=== PATIENT | male | born 1955 | race Caucasian/White ===

== ENCOUNTER 2019-04-19 14:23 | Inpatient (IN) | payer MEDICARE ==
[~2019-04-19] VITALS: Ht 152.4 cm; Wt 78.5 kg
[~2019-04-19 14:23] MED LIST: ALLOPURINOL 30300 M1 PO; ASPIRIN325; ASPIRIN81 M2 PO; AZOR 5-40 MG T1 EACH PO; BYSTOLIC10 MG PO; CRESTOR10 MG PO; FISH OIL 1,0001 EAC5 PO; HYDROCODONE-AP1 EAC6 PO; LISINOPRIL10 MG; LOPID600 MG PO; MEDROLDOSEPACK PO; METFORMIN HCL500 MG PO; NIASPAN ER 101000 M1 PO; ROBAXIN 750 MG750 M1 PO
[2019-04-19 14:24] VITALS: BP 169/72
[2019-04-19] MEDS ORDERED: LISINOPRIL20 MG PO (14:29)
[2019-04-19] MEDS ORDERED: FLOMAX0.4 MG PO (14:30)
[2019-04-19] MEDS ORDERED: AMLODIPINE BESY10 MG PO (14:31)
[2019-04-19] MEDS ORDERED: TIZANIDINE HCL4 M1 PO (14:31)
[2019-04-19 14:51] LABS: ABSOLUTE BASOPHILS 0.2 thou/uL (0.0-0.2); ABSOLUTE LYMPHOCYTES 1.8 thou/uL (0.8-5.3); ABSOLUTE MONOCYTES 1.1 thou/uL (0.0-1.2); ABSOLUTE NEUTROPHILS 11.3 thou/uL (1.6-8.1); BASOPHILS 1.4 %; HEMATOCRIT 38.3 % (42.0-52.0); HEMOGLOBIN 13.2 gm/dL (14.0-18.0); LYMPHOCYTES 12.9 %; MCH 33.5 pg (26.0-34.0); MCHC 34.5 g/dL (28.0-37.0); MONOCYTES 7.4 %; MPV 7.2 fl. (7.2-11.1); NUCLEATED RBCS 0 /100WBC; PLATELET COUNT* 364 thou/uL (150-400); POLYS 78.3 %; RBC 3.95 mil/uL (4.50-6.00); RDW-CV 14.3 % (10.5-14.5); WBC 14.4 thou/uL (4.0-11.0)
[2019-04-19 14:59] LABS: INFLUENZA A ANTIGEN Negative (Negative); INFLUENZA B ANTIGEN Negative (Negative)
[2019-04-19 15:26] LABS: CALCIUM 8.9 mg/dL (8.5-10.1); POTASSIUM 3.8 mmol/L (3.5-5.1)
[2019-04-19 15:30] LABS: APTT 26.5 Seconds (25.0-31.3); PROTIME 10.7 Seconds (9.20-11.50)
[2019-04-19 15:50] LABS: ALBUMIN 3.5 g/dL (3.4-5.0); CK-MB MASS 1.2 ng/mL (<0.5-3.6); MAGNESIUM 1.8 mg/dL (1.8-2.4); TOTAL BILIRUBIN 0.2 mg/dL (<0.1-1.0)
[2019-04-19 17:06] VITALS: BP 146/59
[2019-04-19 17:30] VITALS: BP 116/85
--- NOTE | 2019-04-19 18:19 | NUR ---
ASSUMED PT CARE REPORT RECEIVED FROM ER NURSE. PT ARRIVED ON FLOOR ACCOMPANIED BY ER NURSE ON BED. PT IS AOX4, ON RA. O2 2 LNC APPLIED ORDERED. VSS. SEE CHART. TRACING SR ON BOAT OFFICER. PT IS A SMOKER AND NICOTINE PATCH APPLIED. R AC LINE PATENT. PT IS UP AD KEVIN. ADMISSION HX AND ASSESSMENT DONE. WILL CONTINUE TO MONITOR PT
--- NOTE | 2019-04-19 18:56 | NUR ---
pt troponin 1.71 lab communicated to this nurse per high density press laborer at 1850. dr contacted by [facility] system at 1931. awaiting for call back .pt denies chest pain.
--- NOTE | 2019-04-19 19:06 | NUR ---
CARDIOLOGY CONSULTED OVER ELEVATED TROPONIN. MESSAGE LEFT THROUGH ANSWERING SERVICE.
--- NOTE | 2019-04-19 19:33 | NUR ---
CARDIO CALLED BACK. WEIGHT BASED HEPARIN BOLUS AND ASPIRIN ORDERED. ORDERED PLACED ON MEDITECH AND CHART. HEPARIN ORDER FAXED TO PHARMACY.
--- NOTE | 2019-04-19 19:51 | NUR ---
asa given to patient as ordered
[2019-04-19 20:00] VITALS: BP 125/60
[2019-04-19 20:50] VITALS: BP 125/60
[2019-04-20] VITALS: BP 108/57
--- NOTE | 2019-04-20 01:48 | NUR ---
PT ALERT ORIENTED. UP AD KEVIN IN ROOM. DENIES CP OR DISCOMFORT. L SHOULDER CHRONIC PAIN HYDROCODONE GIVEN. ON RA, HEPARIN BOLUS AND QTT INFUSING. TROPONIN LEVEL INCREASED TO 2.91 DR FOSS NOTIFIED. NO NEW ORDERS. NPO AT SC FOR CARDIOLOGY CONSULT. TELEMETRY SHOWS SR. SB 40S WHILE SLEEPING. WCTM
[2019-04-20 04:00] VITALS: BP 121/61
--- NOTE | 2019-04-20 06:09 | NUR ---
PT NPO AT MIDNIGHT FOR CARDIOLOGY CONSULT.
[2019-04-20 07:55] VITALS: BP 156/63
[2019-04-20 12:00] VITALS: BP 132/54
[2019-04-20 12:13] LABS: CHOLESTEROL 152 mg/dL (<200); HDL CHOLESTEROL 27 mg/dL (>40); LDL CHOLESTEROL 100 mg/dL (<100); TC:HDL 5.6 Ratio (Not establshd); TRIGLYCERIDE 129 mg/dL (<150); VLDL 26 mg/dL (<40)
[2019-04-20 12:14] LABS: SERUM ASSESSMENT Clear
[2019-04-20 16:00] VITALS: BP 123/45
--- NOTE | 2019-04-20 17:14 | NUR ---
PATIENT RESTING IN BED. PATIENT IS UP AD KEVIN IN ROOM. PATIENT HAS DENIED ANY CHEST PAIN TODAY. PATIENT HAD CT THIS MORNING WITHOUT INCIDNENT. PATIENT SCHEDULED FOR CARDIAC CATH TOMORROW. PATIENT HAS GOOD APPETITE, NPO AFTER MIDNIGHT. PATIENT DENIES ANY NEEDS AT THIS TIME. CALL LIGHT WITHIN REACH.
[2019-04-20 20:00] VITALS: BP 170/72
[2019-04-21] VITALS (16 sets, daily range): BP systolic 102–173; BP diastolic 52–75
[2019-04-21] MEDS ORDERED: NORCO 7.5-3251 EACH PO (07:50)
--- NOTE | 2019-04-21 08:36 | EKG ---
[place] [address] ELECTROCARDIOGRAM REPORT Name: CONSTANTINO KAY Room: [facility] ADM IN M.R.#: [id number] Admission: 04/19/19 Attend Phys: Arina Martins Discharge: Date of : 53 Report #: [id number] THIS REPORT FOR: //name// [facility] ED Test Date: 2019-04-19 Test Time: 14:28:29 Pat Name: CONSTANTINO KAY Department: Room: [facility] Gender: M Radiology Interventional Physician: : 1955 Requested By: Jean Michelle Order Number: [id number] MD: Jf Murrell Measurements Intervals [place] Rate: 85 P: 73 MI: 170 QRS: 32 QRSD: 97 T: 85 QT: 388 QTc: 462 Interpretive Statements Sinus rhythm Ventricular premature complex Minimal ST depression, lateral leads Compared to ECG 10/19/2008 13:26:44 Ventricular premature complex(es) now present ST (T wave) deviation now present Electronically Signed On 04-21-2019 8:35:42 HUMAN RESOURCE INTERN by Jf Murrell [email or web address] <ELECTRONICALLY SIGNED> By: Jf Murrell MD, FACC 04/21/19 0835 1428 1428 Jf Murrell MD, [facility] /EPI
--- NOTE | 2019-04-21 10:12 | NUR ---
ASSUMED PT CARE REPORT RECEIVED FROM NURSE PT IS AOX4 ON RA. O2 SATURATION IS 94%. TRACING SINUS JOCELYN ON SLIDE MAKER. NPO STATUS FOR CARDIAC CATH TODAY. CONSENT SIGNED AT BEDSIDE. PT COMPLAINS OF PAIN. NORCO GIVEN. VSS. IV 1/2 NS AT 75 STARTED ORDERED. HEPARIN DIRP INFUSING AT THIS MOMENT. ACCUCHECK. BP MEDICINE AND ASA GIVEN. CALL LIGHT AT REACH. WILL CONTINUE TO MONITOR PT
--- NOTE | 2019-04-21 10:30 | NUR ---
MET WITH PT AND TO DISCUSS HOME SITUATION/DC PLANNING. PT LIVES WITH , HE IS NORMALLY INDEPENDENT AND ACTIVE. USES NO EQUIPMENT OR HOME CARE. FOLL[facility] [place]. PLANS TO RETURN HOME AT DC.
--- NOTE | 2019-04-21 14:25 | NUR ---
PT LEFT FLOOR AT 1425 ACCOMPANIED BY DISASTER DIRECTOR NURSE AND RELATIVES ON BED.
--- NOTE | 2019-04-21 14:28 | NUR ---
HEPARIN DRIP RATE WAS CHANGED AT 1235 PER APTT RESULT PROTOCOL. SEE EMAR AND CHART
--- NOTE | 2019-04-21 18:28 | NUR ---
PT BACK FROM CARDIAC CATH AT 1615, VS BEING MONITORED Q 15 MINUTES. TRACING SR ON YARD COUPLER. EKG DONE AT BEDSIDE. COMPLAINS OF COUGH. MUCINEX GIVEN. COGUGH SUBSIDED DURING DINER TIME. PT INSTRUCTED TO STAY ON BEDREST UNTIL 9PM. ACCUCHECK. FLOMAX AND NICOTINE PATCH GIVEN. L GROIN SITE MONITORING Q 15, 30 MINUTES. L GROIN DRESSING OOZING SCANT RED BLOOD. WILL CONTINUE TO MONITOR FORR BLEEDING. URINAL PROVIDED. NO FURTHER COMPLAINT. WILL CONTINUE TO MONITOR PT. CALL LIGHT AT REACH
[2019-04-22] VITALS: BP 109/42
[2019-04-22 04:00] VITALS: BP 122/43
[2019-04-22 04:56] LABS: ALBUMIN 2.9 g/dL (3.4-5.0); CALCIUM 8.5 mg/dL (8.5-10.1); CREATININE 0.9 mg/dL (0.6-1.3); POTASSIUM 4.3 mmol/L (3.5-5.1); TOTAL BILIRUBIN 0.2 mg/dL (<0.1-1.0); TOTAL PROTEIN 6.6 g/dL (6.4-8.2)
[2019-04-22 05:47] LABS: TROPONIN-I LEVEL 0.84 ng/mL (<0.06)
[2019-04-22 06:19] LABS: HEMATOCRIT 25.7 % (42.0-52.0); HEMOGLOBIN 11.6 gm/dL (14.0-18.0); MCH 52.7 pg (26.0-34.0); MCHC 45.3 g/dL (28.0-37.0); MPV 6.8 fl. (7.2-11.1); RBC 2.21 mil/uL (4.50-6.00); RDW-CV 14.6 % (10.5-14.5); WBC 8.9 thou/uL (4.0-11.0)
[2019-04-22 06:20] LABS: MCV 116.4 fL (80.0-100.0)
[2019-04-22 08:00] VITALS: BP 144/68
[2019-04-22 11:11] VITALS: BP 144/68
[2019-04-22 11:49] VITALS: BP 140/65
--- NOTE | 2019-04-22 12:41 | CARD ---
[facility] [address] [place] [address] CARDIAC CATH REPORT Name: CONSTANTINO KAY Room: [place] [address] ADM IN M.R.#: [id number] Admission: 04/19/19 Attend Phys: Arina Martins Discharge: Date of : 53 Report #: [id number] THIS REPORT FOR: //name// APPROVED REPORT Study performed: 04/21/2019 14:05:[address] Gallego Procedures Performed Left heart catheterization left ventriculography selective coronary arteriography and percutaneous coronary intervention to mid LAD Indication Non-STEMI Risk Factors Hypercholesterolemia, Hypertension Admission/Lab Medications/Medications given during procedure Angiomax bolus and infusion Procedure Narrative The patient was brought electively to the Cardiac Catheterization Laboratory and was prepped and draped in a sterile manner. The left femoral was infiltrated with 2% Lidocaine subcutaneous anesthesia. A 6 Welsh sheath was inserted into the left femoral artery. Coronary angiography was performed using coronary diagnostic catheters. The right coronary system was accessed and visualized with a Diagnostic catheter. The left coronary system was accessed and visualized with a Diagnostic catheter. The left ventricle was accessed and visualized with a Diagnostic catheter. Left ventricular/Aortic Valve gradient assessed via catheter pullback. Left ventriculogram was performed in DIAZ projection. Pre-demployment femoral angiogram was performed . Closure device was deployed with a 6 Fr Angioseal. There was no hematoma. Diagnostic Cath Left Main 0% narrowing LAD 30% proximal narrowing with 90% heavily calcified tortuous mid LAD stenosis Circumflex Tortuosity with 30% mid vessel narrowing Right Coronary 100% ostial occlusion with [id number] collaterals [address] [address] CARDIAC CATH REPORT Name: CONSTANTINO KAY Room: [address] IN ..#: [id number] Admission: 04/19/19 Attend Phys: Arina Martins Discharge: Date of : 53 Report #: [id number] filling the distal right coronary artery Left Ventriculography The left ventricle is normal in size with normal contractility. The left ventricular ejection fraction is estimated to be 60%. Left ventricular wall motion abnormalities are not present. There is no mitral insufficiency. Hemodynamics The aortic pressure is 160/70 mmHg with a mean of 90 mmHg. The left ventricular pressure is 160/8 end-diastolic mmHg with a mean of mmHg. The left ventricular end diastolic pressure is 8 mmHg. There was no gradient across the aortic valve upon pullback. PCI Technique Lesion Anticoagulation was achieved with Angiomax. Percutaneous coronary intervention was performed on the mid left anterior descending artery segment. The lesion stenosis prior to intervention was 90% with BENNY 3 flow. BALLOON DILATION A Balloon catheter 1.2x8, 1.5x12, 2.0x15, 2.5x12 nc trek was inserted and inflated up to 12-20atm for 15seconds. STENT DEPLOYMENT A drug-eluting stent 2.25 x 30 mm mickey was inserted and inflated up to 14atm for 18seconds. POST STENT DEPLOYMENT BALLOON DILATION A Balloon catheter 2.5 x 12 NC trek was inserted and inflated up to 12-18 to 18atm for 15seconds. Final angiography reveals 0 % stenosis with BENNY 3 flow. COMMENTS PCI was technically complex by virtue of severe calcification and tortuosity of the mid LAD segment requiring complex wiring and significant lesion preparation prior to final stent deployment Conclusion #1 significant coronary artery disease characterized by the following: A 30% proximal LAD narrowing with 90% heavily [place] [address] CARDIAC CATH REPORT Name: CONSTANTINO KAY Room: [address] IN [facility]#: [id number] Admission: 04/19/19 Attend Phys: Arina Martins Discharge: Date of : 53 Report #: [id number] LAD stenosis B 30% narrowing with tortuosity of the midportion the nondominant circumflex C dominant right coronary artery which is totally occluded at its ostium with [id number] collaterals filling distal right coronary artery #2 normal left ventricular systolic function, estimate ejection fraction 60% #3 moderate systemic systolic hypertension #4 successful percutaneous coronary intervention with deployment of drug-eluting stent at site of 90% heavily calcified mid LAD stenosis with 0% residual narrowing and BENNY-3 flow to the distal vessel Recommendations Cardiac Risk Reduction Program Aggressive Medical Therapy Medications Administered Aspirin (any) Ticagrelor Diagnostic Cath Approved by: Fredy Gallego MD Date/Time: 04/22/2019 12:39:42 <ELECTRONICALLY SIGNED> By: Fredy Gallego MD, [facility] 04/22/19 1240 1240 1240Fredy Gallego MD, FAC /INF
--- NOTE | 2019-04-22 13:18 | EKG ---
[place] [address] ELECTROCARDIOGRAM REPORT Name: CONSTANTINO KAY Room: [place] [address] ADM IN M.R.#: [id number] Admission: 04/19/19 Attend Phys: Arina Martins Discharge: Date of : 53 Report #: [id number] THIS REPORT FOR: //name// [facility] Test Date: 2019-04-21 Test Time: 17:12:02 Pat Name: CONSTANTINO KAY Department: Room: [place] [address] Gender: M Oral Surgeon: : 1955 Requested By: Fredy Gallego Order Number: [id number] Becca MD: Jf Murrell Measurements Intervals [place] Rate: 56 P: 57 AK: 169 QRS: 6 QRSD: 98 T: 5 QT: 441 QTc: 426 Interpretive Statements Sinus rhythm Compared to ECG 04/19/2019 14:28:29 Ventricular premature complex(es) no longer present ST (T wave) deviation no longer present Electronically Signed On 04-22-2019 13:17:30 BELT LINE FEEDER by Jf Murrell [email or web address] <ELECTRONICALLY SIGNED> By: Jf Murrell MD, [facility] 04/22/19 1317 1712 171 Jf Murrell MD, [facility] /EPI
--- NOTE | 2019-04-22 14:10 | 2DMMODE ---
[place] [address] 2 D/M-MODE ECHOCARDIOGRAM Name: KAYCONSTANTINO HORACE Room: [place] [address] ADM IN .R.#: [id number] Admission: 04/19/19 Attend Phys: Uziel Babb Discharge: Date of : 53 Date of Service: 04/22/19 1410 Report #: [id number] THIS REPORT FOR: //name// APPROVED REPORT Study performed: 04/22/2019 09:17:35 EXAM: Limited 2D, Doppler, and color-flow Echocardiogram Patient Location: Bedside BSA: 1.76 HR: 60 bpm BP: 122/43 mmHg Other Information Study Quality: Fair Indications Chest Pain PASP Estimate 2D Dimensions IVSd: 11.29 (7-11mm) LVOT Diam: 24.83 (18-24mm) LVDd: 45.28 mm PWd: 10.51 (7-11mm) Ascending Ao: 30.99 (22-36mm) LVDs: 25.26 (25-40mm) Aortic Root: 29.85 mm Volumes Left Atrial Volume (Systole) LA ESV Index: 25.30 mL/m2 Tricuspid Valve RAP Estimate: 5.00 mmHg TR Peak Gr.: 13.74 mmHg RVSP: 18.74 mmHg PA Pressure: 18.74 mmHg Left Ventricle The left ventricle is normal size. There is normal LV segmental wall motion. There is normal left ventricular wall thickness. Left ventricular systolic function is normal. The left ventricular ejection fraction is within the normal range. LVEF is 60-65%. Right Ventricle The right ventricle [place] [address] 2 D/M-MODE ECHOCARDIOGRAM Name: CONSTANTINO KAY Room: 227-1 ADM IN [facility].#: [id number] Admission: 04/19/19 Attend Phys: Uziel Babb Discharge: Date of : 53 Date of Service: 04/22/19 1410 Report #: [id number] Atria The left atrium size is normal. The right atrium size is normal. Aortic Valve The aortic valve is normal in structure. Mitral Valve The mitral valve is normal in structure. Tricuspid Valve The tricuspid valve is normal in structure. Pulmonic Valve Pulmonic valve is not well visualized. Great Vessels The aortic root is normal in size. Pericardium There is no pericardial effusion. <Conclusion> Left ventricular systolic function is normal. The left ventricular ejection fraction is within the normal range. <ELECTRONICALLY SIGNED> By: Jf Murrell MD, [facility] 04/22/191409 09 1410 Jf Murrell MD, FACC /INF
--- NOTE | 2019-04-22 14:21 | EKG ---
[place] [address] ELECTROCARDIOGRAM REPORT Name: CONSTANTINO KAY Room: [place] [address] ADM IN M.R.#: [id number] Admission: 04/19/19 Attend Phys: Arina Martins Discharge: Date of : 53 Report #: [id number] THIS REPORT FOR: //name// [facility] Test Date: 2019-04-22 Test Time: 04:07:27 Pat Name: CONSTANTINO KAY Department: Room: [place] [address] Gender: M Program Facilitator: : 1955 Requested By: Fredy Gallego Order Number: [id number] Becca MD: Jf Murrell Measurements Intervals [place] Rate: 60 P: 49 GA: 177 QRS: 5 QRSD: 92 T: 17 QT: 453 QTc: 453 Interpretive Statements Incomplete analysis due to missing data in precordial lead(s) Sinus rhythm nonspecific t wave changes Missing lead(s): V6 Electronically Signed On 04-22-2019 14:21:02 HISTOTECHNOLOGIST SUPERVISOR by Jf Murrell [email or web address] <ELECTRONICALLY SIGNED> By: Jf Murrell MD, [facility] 04/22/19 1421 0407 0407 Jf Murrell MD, FACC /EPI
[2019-04-22] MEDS ORDERED: LIPITOR40 MG PO (14:29)
[2019-04-22] MEDS ORDERED: BRILINTA90 MG PO (14:30)
[2019-04-22] MEDS ORDERED: NITROGLYCERIN0.4 MG SUBLING (14:31)
[2019-04-22 16:04] VITALS: BP 155/54
--- NOTE | 2019-04-22 16:36 | NUR ---
ORDER RECEIVED TO DISCHARGE PATIENT HOME TO SELF CARE. MED REC, MEDICATION EDUCATION, STROKE EDUCATION, AND FOLLOW UP APPOINTMNETS WITH CARDIOLOGY COVERED WITH PATIENT AND ACKNOWLEDGED. IV AND TELEMETRY PACK REMOVED. ZENON HAD EXTENSIVE EDUCATION WITH CARDIAC SATELLITE INSTRUCTION FACILITATOR TODAY REGARDING POST CATH SITE CARE, NEW MEDICAITONS, AND NEED FOR COMPLIANCE WITH FOLLOW UPS. HOURLY ROUNDING COMPLETED FOR PATIENT SAFETY.
--- NOTE | 2019-04-23 10:30 | CON ---
[address] [address] CONSULTATION Name: RAHULCONSTANTINO HORACE Room: [address] IN ..#: [id number] Admission: 04/19/19 Attend Phys: Arina Martins Discharge: 04/22/19 Date of : 53 Report #: [id number] THIS REPORT FOR: //name// CC: Kyle Babb DATE OF SERVICE: 04/20/2019 HISTORY OF PRESENT ILLNESS: The patient is a very pleasant 63-year-old male who presented yesterday after an episode of chest discomfort with achy arm pain. There was mild confusion associated with the onset. This abated. His pain was completely gone by the time of arrival in the Emergency Room. Initial troponin was mildly elevated and it subsequently increased to 3.47. He has had no subsequent episodes of chest discomfort in the hospital. He was placed on aspirin and heparin. The patient has no history of antecedent myocardial infarction or prior chest pain of this kind. He does have risk factors for coronary artery disease, which include hypertension, significant cigarette smoking and currently 1-1.5 packs per day and a family history of multiple first-degree relatives with coronary artery disease. He denies diabetes or known peripheral vascular disease. MEDICATIONS: Amlodipine, aspirin, gemfibrozil, hydrocodone/acetaminophen, lisinopril, metformin, omega 3 fatty acids, tamsulosin, and tizanidine. PAST MEDICAL HISTORY: Remarkable for left carotid narrowing which was said to be at modest, prior TIA. PAST SURGICAL HISTORY: Include appendectomy and a stent in the right carotid. FAMILY HISTORY: Remarkable for mother having a heart attack at 56 and two brother having heart attacks and one having coronary bypass grafting. SOCIAL HISTORY: The patient is . He smokes 1-1/2 packs of cigarettes a day. REVIEW OF SYSTEMS: Remarkable for the following positives. RESPIRATORY: He notes occasional cough with minimal sputum production. CARDIAC: He presented with chest discomfort and mild accompanying dyspnea. ALLERGIC AND IMMUNOLOGIC: He denies any medication allergies. GASTROINTESTINAL: There is a history of gout. CEREBROVASCULAR: There is a history of transient ischemic attack, [place] [address] CONSULTATION Name: CONSTANTINO KAY Room: [address]#: [id number] Admission: 04/19/19 Attend Phys: Arina Martins Discharge: 04/22/19 Date of : 53 Report #: [id number] PHYSICAL EXAMINATION: GENERAL: Reveals a modestly overweight, middle-aged male. VITAL SIGNS: Blood pressure 130/70, pulse rate is 74, respirations 18 per minute. NECK: Jugular venous pressure is normal. Carotids are 1-2+. CHEST: Clear. CARDIAC: Reveals normal first and second heart sounds with a soft early systolic murmur without rubs or gallops. ABDOMEN: Mildly obese. EXTREMITIES: Without edema with intact femoral, pedal and radial pulses. There are no deformity or arthritic changes. No petechiae or ecchymosis are noted. LABORATORY DATA: Troponins are reviewed. The peak value is 3.47, creatinine 1.0, BUN 18, potassium 3.8, hemoglobin 13.2, white blood cell count 14,400 with 364,000 platelets. EKG reveals sinus rhythm with anterolateral ST segment depression suggesting ischemia or injury. A rare PVC is noted. IMPRESSION: 1. Non-ST segment elevation myocardial infarction. 2. No chest pain since admission. 3. Hypertension. 4. Hypercholesterolemia. 5. Tobacco habituation. 6. Prior transient ischemic attack. 7. Prior carotid stenting. RECOMMENDATIONS: 1. Metformin was administered this morning, and we will defer the catheterization for 24 hours in this context. 2. Resume and continue antiplatelet therapy. 3. Continue heparinization. 4. Continue antihypertensive therapy. Thus, we will observe the patient today. If there is recurrent discomfort, catheterization may be coarse at an earlier time frame; otherwise, I would do it electively tomorrow in the a.m. after the patient's metformin has been held for 24 hours. <ELECTRONICALLY SIGNED> By: Fredy Gallego MD, FACC 04/23/19 1030 0948 1412Joandrew Gallego MD, FACC /nt
== END 2019-04-22 16:30 | disposition home or self-care (01) | DRG 246 ==
LOC: M.ERS 14:23 → M.TBA-ER 16:18 → M.2W 16:18
PROVIDERS: Family Medicine; Internal Medicine; Psychiatry & Neurology Neurology; ADMIT Internal Medicine
PROC: B2151ZZ Fluoroscopy of Left Heart using Low Osmolar Contrast (ICD-10-PCS; principal; 2019-04-21)
PROC: B2111ZZ Fluoroscopy of Multiple Coronary Arteries using Low Osmolar Contrast (ICD-10-PCS; principal; 2019-04-21)
PROC: 4A023N7 Measurement of Cardiac Sampling and Pressure, Left Heart, Percutaneous Approach (ICD-10-PCS; principal; 2019-04-21)
PROC: 027034Z Dilation of Coronary Artery, One Artery with Drug-eluting Intraluminal Device, Percutaneous Approach (ICD-10-PCS; principal; 2019-04-21)
DX: I21.4 Non-ST elevation (NSTEMI) myocardial infarction (principal); G93.41 Metabolic encephalopathy; J96.00 Acute respiratory failure, unspecified whether with hypoxia or hypercapnia; R65.10 Systemic inflammatory response syndrome (SIRS) of non-infectious origin without acute organ dysfunction; M10.9 Gout, unspecified; I10 Essential (primary) hypertension; I25.10 Atherosclerotic heart disease of native coronary artery without angina pectoris; F17.210 Nicotine dependence, cigarettes, uncomplicated; E78.00 Pure hypercholesterolemia, unspecified; E78.5 Hyperlipidemia, unspecified; J06.9 Acute upper respiratory infection, unspecified; E11.9 Type 2 diabetes mellitus without complications; Z79.82 Long term (current) use of aspirin; Z82.3 Family history of stroke; Z79.899 Other long term (current) drug therapy; Z86.73 Personal history of transient ischemic attack (TIA), and cerebral infarction without residual deficits; Z90.49 Acquired absence of other specified parts of digestive tract

== ENCOUNTER 2019-05-18 14:52 | Inpatient (IN) | payer MEDICARE ==
[~2019-05-18] VITALS: Ht 167.6 cm; Wt 75.3 kg
[~2019-05-18 14:52] MED LIST changes: +AMLODIPINE BESY10 MG PO; +BRILINTA90 MG PO; +FLOMAX0.4 MG PO; +LIPITOR40 MG PO; +LISINOPRIL20 MG PO; +NITROGLYCERIN0.4 MG SUBLING; +NORCO 7.5-3251 EACH PO; +TIZANIDINE HCL4 M1 PO
[2019-05-18 14:56] VITALS: BP 110/48
[2019-05-18 15:28] LABS: ABSOLUTE BASOPHILS 0.1 thou/uL (0.0-0.2); ABSOLUTE LYMPHOCYTES 1.3 thou/uL (0.8-5.3); ABSOLUTE MONOCYTES 0.7 thou/uL (0.0-1.2); ABSOLUTE NEUTROPHILS 9.3 thou/uL (1.6-8.1); BASOPHILS 0.5 %; EOSINOPHILS 0.3 %; HEMATOCRIT 31.7 % (42.0-52.0); HEMOGLOBIN 10.7 gm/dL (14.0-18.0); LYMPHOCYTES 11.1 %; MCH 32.8 pg (26.0-34.0); MCHC 33.6 g/dL (28.0-37.0); MCV 97.6 fL (80.0-100.0); MONOCYTES 5.9 %; MPV 6.7 fl. (7.2-11.1); NUCLEATED RBCS 0 /100WBC; PLATELET COUNT* 312 thou/uL (150-400); POLYS 82.2 %; RBC 3.25 mil/uL (4.50-6.00); RDW-CV 15.3 % (10.5-14.5); WBC 11.3 thou/uL (4.0-11.0)
[2019-05-18 15:35] LABS: CALCIUM 8.3 mg/dL (8.5-10.1); CREATININE 1.2 mg/dL (0.6-1.3); POTASSIUM 4.3 mmol/L (3.5-5.1)
[2019-05-18 15:39] LABS: PROTIME 10.6 Seconds (9.20-11.50)
[2019-05-18 15:40] LABS: ALBUMIN 3.5 g/dL (3.4-5.0); TOTAL BILIRUBIN 0.2 mg/dL (<0.1-1.0); TOTAL PROTEIN 7.5 g/dL (6.4-8.2)
[2019-05-18 15:45] LABS: URINE BLOOD NEGATIVE (Negative); URINE CLARITY CLEAR; URINE COLOR YELLOW; URINE GLUCOSE-RANDOM NEGATIVE (Negative); URINE KETONES NEGATIVE (Negative); URINE LEUKOCYTES-REFLEX NEGATIVE (Negative); URINE NITRITE-REFLEX NEGATIVE (Negative); URINE PROTEIN 1+ (Negative); URINE SPECIFIC GRAVITY >= 1.030 (1.005-1.030); URINE UROBILINOGEN 0.2 E.U./dl (0.2-1.0)
[2019-05-18 15:57] LABS: ICTOTEST (BILI CONFIRMATORY) Negative (Negative); URINE BILIRUBIN 1+ (Negative)
[2019-05-18 16:32] LABS: INFLUENZA A ANTIGEN Negative (Negative); INFLUENZA B ANTIGEN Negative (Negative)
[2019-05-18 18:48] VITALS: BP 115/56
[2019-05-18 19:46] VITALS: BP 123/43
[2019-05-18 19:47] VITALS: BP 121/51; BP 124/52
[2019-05-19] VITALS: BP 134/55
[2019-05-19 04:00] VITALS: BP 138/70
[2019-05-19 05:48] LABS: HEMATOCRIT 30.3 % (42.0-52.0); HEMOGLOBIN 10.3 gm/dL (14.0-18.0); MCHC 33.9 g/dL (28.0-37.0); MCV 97.6 fL (80.0-100.0); MPV 6.9 fl. (7.2-11.1); RBC 3.11 mil/uL (4.50-6.00); RDW-CV 15.1 % (10.5-14.5); WBC 7.8 thou/uL (4.0-11.0)
[2019-05-19 06:10] LABS: CALCIUM 8.5 mg/dL (8.5-10.1); CREATININE 0.9 mg/dL (0.6-1.3); POTASSIUM 4.2 mmol/L (3.5-5.1)
--- NOTE | 2019-05-19 10:12 | EKG ---
[place] [address] ELECTROCARDIOGRAM REPORT Name: CONSTANTINO KAY Room: [address] ADM IN M.R.#: [id number] Admission: 05/18/19 Attend Phys: Lachelle Newman Discharge: Date of : 53 Report #: [id number] THIS REPORT FOR: //name// [facility] ED Test Date: 2019-05-18 Test Time: 14:55:09 Pat Name: CONSTANTINO KAY Department: Room: [facility] Gender: M [employer] Former: : 1955 Requested By: Jean Michelle Order Number: [id number] MD: Jf Murrell Measurements Intervals [place] Rate: 67 P: 34 WI: 148 QRS: 15 QRSD: 99 T: 29 QT: 412 QTc: 435 Interpretive Statements Sinus rhythm Compared to ECG 04/22/2019 04:07:27 no change Electronically Signed On 05-19-2019 10:11:56 CNC TECHNICIAN by Jf Murrell [email or web address] <ELECTRONICALLY SIGNED> By: Jf Murrell MD, [facility] 05/19/19 1011 1455 1455 Jf Murrell MD, FACC /EPI
[2019-05-19 12:00] VITALS: BP 135/72
[2019-05-19 17:08] VITALS: BP 135/72
--- NOTE | 2019-05-20 15:51 | CON ---
[address] [address] CONSULTATION Name: RAHULCONSTANTINOFRANKIE VU Room: [address] IN M.R.#: [id number] Admission: 05/18/19 Attend Phys: Lachelle Newman Discharge: 05/19/19 Date of : 53 Report #: [id number] THIS REPORT FOR: //name// CC: [facility] physician/PCP Lachelle Ram DATE OF SERVICE: 05/19/2019 CARDIOLOGY CONSULTATION HISTORY OF PRESENT ILLNESS: The patient is a 63-year-old white male who I was asked to see in the hospital today after he had a lightheaded spell. The patient has a long history of hypertension, hyperlipidemia. He had a previous TIA and had a stent placed years ago. He had no previous history of heart disease until he presented to [place] in March with chest pain. He is felt to have evidence of a non-STEMI. He was seen by my partner, Dr. Fredy Gallego. He performed a cardiac catheterization on 04/21/2019 from the right femoral artery. Results showed a 90% narrowing of the LAD. The circumflex had no significant disease. The right coronary artery is chronically occluded and filled by collaterals. Ejection fraction of 60%. He then performed angioplasty and had a single drug-eluting stent placed in his mid LAD. He was placed on Brilinta and discharged. He returned to see my nurse practitioner on 04/29/2019. At that time, his blood pressure is elevated. Dr. Gallego' nurse practitioner increased lisinopril from 10 mg to 20 mg a day. Since that time, he has done well with no significant chest pain, shortness of breath, palpitations, peripheral edema or bleeding. Yesterday, he was at a store when he felt lightheaded and fell to the ground. Apparently, there was no loss of consciousness. He did strike his chin. He had no bleeding. His brought him to the Emergency Room. He was noted to be hypotensive. He was admitted to a monitored bed. He denied any bleeding or fever. PAST MEDICAL HISTORY: Significant for an appendectomy. He has a long history of hypertension, hyperlipidemia. MEDICATIONS: Include allopurinol, amlodipine, aspirin, Lipitor, gemfibrozil, hydrocodone for chronic shoulder pain, lisinopril, Flomax, Brilinta. ALLERGIES: He has no known drug allergies. FAMILY HISTORY: Positive for heart disease. SOCIAL HISTORY: He is . He and his live in [place], [place]. He is retired from a tree service. He smokes a pack of cigarettes a [place] [address] CONSULTATION Name: CONSTANTINO KAY Room: [address] IN M.R.#: [id number] Admission: 05/18/19 Attend Phys: Lachelle Newman Discharge: 05/19/19 Date of : 53 Report #: [id number] REVIEW OF SYSTEMS: He has had no history of asthma, GI bleeding, liver disease, kidney disease, cancer, psychiatric illness, chronic skin condition. PHYSICAL EXAMINATION: GENERAL: Revealed a middle-aged male, appeared in no acute distress. VITAL SIGNS: Blood pressure 130/70, pulse 60. He is afebrile. HEENT: He was anicteric. Conjunctivae pink. Mucous membranes moist. Bilateral carotid bruits were heard. CHEST: Clear to auscultation. CARDIOVASCULAR: Regular rate and rhythm. ABDOMEN: Soft. EXTREMITIES: Had no edema. Dorsalis pedis pulse cannot be palpated. SKIN: Cool and dry. NEUROLOGIC: Nonfocal. LYMPH: No adenopathy. MUSCULOSKELETAL: No joint effusion. DIAGNOSTIC DATA: His ECG on admission yesterday showed a sinus rhythm. There was no significant ST or T-wave change noted. His workup yesterday, he had a CT scan of the head performed after his fall without contrast that showed only chronic changes, no acute abnormality. His chest x-ray showed normal heart size, clear lung willard. He had a CTA of the neck performed in March that showed no acute stenosis following stent placement, there was plaque noted. LABORATORY WORK: Sodium 144, potassium 4.2, creatinine is 0.9. His liver function studies were normal. Troponin 0.06. BNP in March was 375. TSH 1.9. White blood cell count 7.8, hematocrit was 30.3. IMPRESSION AND RECOMMENDATIONS: 1. Fall. Suspect related to low blood pressure after increase in his lisinopril to 20 mg a day. At this time, I suggested that the patient continue to take amlodipine in the morning and cut the lisinopril back to 10 mg and take it at bedtime. He was to check his blood pressure frequently and return to see Dr. Gallego next month. 2. Hypertension. The patient is on calcium theron and KIMMY inhibitor. 3. Recent placement of stent. The patient is on aspirin and Brilinta. 4. Hyperlipidemia. The patient is on Lipitor for high cholesterol and gemfibrozil for high triglycerides. 5. Narcotic use. The patient has chronic shoulder pain. 6. Prostatism. I suggest he takes Flomax at bedtime. 7. Previous placement of a right carotid stent, asymptomatic. CT angiogram [place] [address] CONSULTATION Name: CONSTANTINO KAY Room: [address] IN M.R.#: [id number] Admission: 05/18/19 Attend Phys: Lachelle merritt Warren Discharge: 05/19/19 Date of : 53 Report #: [id number] last month showed no significant stenosis. 8. Tobacco abuse. <ELECTRONICALLY SIGNED> By: Jf Murrell MD, FACC 05/20/19 1551 1417 0354Dreema Murrell MD, FACC /nt
== END 2019-05-19 17:30 | disposition home or self-care (01) | DRG 312 ==
LOC: M.ERS 14:52 → M.2W 15:59 → M.TBA-ER 15:59 → M.2W 18:51
PROVIDERS: Family Medicine; ADMIT Family Medicine
DX: R55 Syncope and collapse (principal); Z95.5 Presence of coronary angioplasty implant and graft; I10 Essential (primary) hypertension; E78.5 Hyperlipidemia, unspecified; M10.9 Gout, unspecified; E78.00 Pure hypercholesterolemia, unspecified; F15.90 Other stimulant use, unspecified, uncomplicated; N40.0 Benign prostatic hyperplasia without lower urinary tract symptoms; I25.10 Atherosclerotic heart disease of native coronary artery without angina pectoris; M25.562 Pain in left knee; M25.561 Pain in right knee; D72.829 Elevated white blood cell count, unspecified; I73.9 Peripheral vascular disease, unspecified; E83.42 Hypomagnesemia; Z72.0 Tobacco use; Z90.89 Acquired absence of other organs; Z82.49 Family history of ischemic heart disease and other diseases of the circulatory system; Z95.828 Presence of other vascular implants and grafts; Z79.82 Long term (current) use of aspirin; Z79.891 Long term (current) use of opiate analgesic; Z79.899 Other long term (current) drug therapy; I25.2 Old myocardial infarction

== ENCOUNTER → 2019-05-21 | Outpatient (CLI) | payer MEDICARE | LOC: M.RAD 10:30 | DX: I70.201 Unspecified atherosclerosis of native arteries of extremities, right leg (principal); M81.0 Age-related osteoporosis without current pathological fracture; M79.672 Pain in left foot ==

== ENCOUNTER → 2019-06-25 | Outpatient (CLI) | payer MEDICARE ==
[2019-06-25 14:38] LABS: ABSOLUTE BASOPHILS 0.1 thou/uL (0.0-0.2); ABSOLUTE EOSINOPHILS 0.1 thou/uL (0.0-0.7); ABSOLUTE LYMPHOCYTES 2.5 thou/uL (0.8-5.3); ABSOLUTE NEUTROPHILS 5.2 thou/uL (1.6-8.1); BASOPHILS 0.9 %; EOSINOPHILS 1.3 %; HEMATOCRIT 25.6 % (42.0-52.0); HEMOGLOBIN 8.4 gm/dL (14.0-18.0); LYMPHOCYTES 28.3 %; MCH 30.5 pg (26.0-34.0); MCHC 32.9 g/dL (28.0-37.0); MCV 92.9 fL (80.0-100.0); MONOCYTES 11.4 %; MPV 6.3 fl. (7.2-11.1); NUCLEATED RBCS 0 /100WBC; PLATELET COUNT* 456 thou/uL (150-400); POLYS 58.1 %; RBC 2.76 mil/uL (4.50-6.00)
[2019-06-25 15:00] LABS: ALBUMIN 3.6 g/dL (3.4-5.0); CALCIUM 8.9 mg/dL (8.5-10.1); CREATININE 0.9 mg/dL (0.6-1.3); TOTAL BILIRUBIN 0.2 mg/dL (<0.1-1.0); TOTAL PROTEIN 7.6 g/dL (6.4-8.2)
== END ==
LOC: M.LAB 14:08
PROVIDERS: Registered Nurse
DX: R55 Syncope and collapse (principal)

== ENCOUNTER → 2020-08-03 | Outpatient (CLI) | payer MEDICARE ==
--- NOTE | 2020-08-03 15:43 | CARDNUC ---
[place] [address] CARDIAC NUCLEAR IMAGING REPORT Name: CONSTANTINO KAY Delores Room: [facility]#: [id number] Admission: 08/03/20 Attend Phys: Delores Browne Discharge: Date of : 53 Date of Service: 08/03/20 1543 Report #: [id number] THIS REPORT FOR: cc: Ronnell Whitney MD, Stephen R. MD Liston,Thien Rick MD LOCATED WITHIN [facility] ~ APPROVED REPORT Imaging Protocol: Rest Tc-99m/Stress Tc-99m 1 day Study performed: 08/03/2020 09:32:06 Indication: CAD s/p AK, CAD s/p PCI. Patient Location: Out-Patient Stress Tech: Tara Tompkins Stress Nurse: Maddy Marcum RN NM Tech:MARIO Lamar Ht: 5 ft 6 in Wt: 174 lbs BSA: 1.88 m2 BMI: 28.08 Medical History Medical History: CAD s/p AK, CAD s/p stent, Carotid artery disease, Current Smoker, HTN, Hyperlipidemia, PVD, SOB, Arthritis pain, HX TA. Medications: Amlodipine, atorvastatin, lisinopril, brilinta, gemfibrozil, omega 3 fatty acids. Allergies: Hydromorphone. Cardiac Risk Factors: Age, Current Smoker, FHX of CAD, HTN, Hyperlipidemia, carotid disease, HX TA, PVC. Previous Cardiac Procedures: Myocardial infarction, PCI. Pretest Chest Pain Characteristics: No chest pain Exercise History: Sedentary Physical Disabilities: Arthritis pain/knees, generalized weakness. Meds Held (24 hrs): Amlodipine, Lisinopril. Resting Data Rest SPECT myocardial perfusion imaging was performed in supine position 30 minutes following the intravenous injection of 8.0 mCi of Tc-99m Sestamibi. Time of rest injection: 0800 Date: 08/03/2020 The images were gated to evaluate regional wall motion and calculate left ventricular ejection fraction. Administration Route: [place] [address] CARDIAC NUCLEAR IMAGING REPORT Name: CONSTANTINO KAY Room: [facility]#: [id number] Admission: 08/03/20 Attend Phys: Delores Browne Discharge: Date of : 53 Date of Service: 08/03/20 1543 Report #: [id number] Administration Site: Right Hand Pharmacologic Stress Pharmacologic stress test was performed by injecting Regadenoson 0.4 mg IV push over 10-15 seconds immediately followed by the intravenous injection of 28.6 mCi of Tc-99m Sestamibi. Time of stress injection: 939 Date: 08/03/2020 Administration Route: IV Administration Site: Right Hand Gated Stress SPECT was performed 40 minutes after stress injection. The images were gated to evaluate regional wall motion and calculate left ventricular ejection fraction. Prone imaging was performed. Stress Test Details Stress Test: Pharmacologic stress testing performed using 0.4 mg of regadenoson per 5 mL given IV over 10 seconds. Reason for pharmacologic stress test: Arthritis pain/knees, generalized weakness.. HR Max Heart Rate (APMHR): 155 bpm Resting HR: 60 bpm Target HR (85% APMHR): 131 bpm Max HR Achieved: 94 bpm % of APMHR: 60 Recovery HR: 86 bpm BP Resting BP: 154/63 mmHg Max BP: 150/50 mmHg Recovery BP: 179/61 mmHg ECG Resting ECG: Sinus Rhythm Stress ECG: Sinus Rhythm ST Change: None Arrhythmia: None Recovery ECG: Sinus Rhythm Recovery ST Change: None Recovery Arrhythmia: None Clinical Reason for Termination: Completed protocol Stress Symptoms: Dyspnea Exercise duration: 00 min 00 sec Exercise capacity: 1.00 METs The patient tolerated Lexiscan infusion without significant [place] [address] CARDIAC NUCLEAR IMAGING REPORT Name: CONSTANTINO KAY Room: [facility]#: [id number] Admission: 08/03/20 Attend Phys: Delores Browne Discharge: Date of : 53 Date of Service: 08/03/20 1543 Report #: [id number] symptoms. Nurse Comments A 64 year old male presented for a sitting Lexiscan. Test well tolerated. Recovery unremarkable. Patient was stable and stated he felt good when escorted to Nuclear Medicine for imaging. Stress ECG Conclusion The baseline twelve-lead EKG shows sinus rhythm with nonspecific T wave flattening without significant ST segment change. EKGs obtained during and post Lexiscan infusion shows sinus rhythm with no significant ST segment changes when compared to baseline. There were no significant stress-induced arrhythmias. Study Quality Study: Good Artifact: Mild Diaphragmatic artifact Study Data At rest, the left ventricular ejection fraction was 77%.. Post stress, the left ventricular ejection was 79%.. TID = 0.94. Perfusion Perfusion images obtained at rest and post Lexiscan stress show a focal persistent moderate intensity defect in the mid inferior wall consistent with prior focal inferior wall infarct. The prone imaging shows a greater region of photopenia in the inferior wall consistent with diaphragmatic attenuation artifact. Wall Motion Global LV systolic function is normal. There is a focal region of hypokinesis in the middle inferior wall. Nuclear Conclusion ECG Findings: negative for ischemia Clinical Findings: negative for ischemia Nuclear Findings: negative for ischemia Exercise Capacity: not assessed Left Ventricular Function: Preserved Risk Study: low Perfusion images show no defect to suggest ischemia. There is perhaps a focal fixed defect of the mid inferior wall possibly consistent with prior infarct. Global LV systolic function is well-preserved. This [place] [address] CARDIAC NUCLEAR IMAGING REPORT Name: CONSTANTINO KAY [id number] Admission: 08/03/20 Attend Phys: Delores Browne Discharge: Date of : 53 Date of Service: 08/03/20 1543 Report #: [id number] <Conclusion> The baseline twelve-lead EKG shows sinus rhythm with nonspecific T wave flattening without significant ST segment change. EKGs obtained during and post Lexiscan infusion shows sinus rhythm with no significant ST segment changes when compared to baseline. There were no significant stress-induced arrhythmias. <ELECTRONICALLY SIGNED> By: Thien Herrera MD, FACC 08/03/20 1543 1543 1543 Thien Herrera MD, FACC /INF
== END ==
LOC: M.NUC 07-19 16:23
PROVIDERS: ATTEND Internal Medicine
DX: I25.10 Atherosclerotic heart disease of native coronary artery without angina pectoris (principal); I25.2 Old myocardial infarction; Z95.5 Presence of coronary angioplasty implant and graft